=== PATIENT | male | born 1950 | race Caucasian/White ===

== ENCOUNTER 2021-05-18 14:08 | Inpatient (IN) ==
[2021-05-18] MEDS ORDERED: Aspirin 81 MG TAB.CHEW PO ONE (14:14)
[2021-05-18] MEDS ORDERED: Nitroglycerin 1 INCH/GM PACKET TP ONE (14:14)
[2021-05-18 14:51] LABS: Basophils % 0.6 %; Eosinophils # 0.2 K/mcL (0.0-0.6); Eosinophils % 4.7 %; Hematocrit 31.3 % (37.5-50.1); Hemoglobin 9.7 g/dL (12.9-16.9); Immature Granulocytes % 0.2 % (0-4); Lymphocytes # 0.8 K/mcL (0.6-4.6); Lymphocytes % 15.5 %; Mean Corpuscular Hemoglobin 27.8 pg (28.0-33.3); Mean Corpuscular Volume 89.7 fL (83.0-100.0); Mean Platelet Volume 10.2 fL (9.4-12.4); Monocytes # 0.8 K/mcL (0.0-1.3); Monocytes % 16.7 %; Platelet Count 216 K/mcL (140-400); Red Blood Count 3.49 M/mcL (4.19-5.50); Red Cell Distribution Width 17.2 % (11.5-14.5); Segmented Neutrophils % 62.3 %; White Blood Count 4.9 K/mcL (4.3-11.1)
[2021-05-18 14:58] LABS: INR 1.2; Prothrombin Time 13.4 Seconds (9.4-12.1)
[2021-05-18 15:07] LABS: BUN/Creatinine Ratio 22 (6-26); Blood Urea Nitrogen 19 mg/dL (8-23); Calcium 8.7 mg/dL (8.6-10.3); Carbon Dioxide 29 mEq/L (23-29); Chloride 103 mEq/L (98-107); Glucose 116 mg/dL (70-105); Osmolality,Calculated 291 (280-300); Potassium 3.9 mEq/L (3.5-5.1); Sodium 139 mEq/L (136-145); Troponin I < 0.03 ng/mL (< 0.04); eGFR For African Americans > 60 (> 60); eGFR For Non-African Americans > 60 (> 60)
[2021-05-18] MEDS ORDERED: Ondansetron 4 MG/2 ML VIAL IVP PRN (15:58)
[2021-05-18] MEDS ORDERED: D5% in Water 1,000 ML IVC PRN (16:59)
[2021-05-18] MEDS ORDERED: *HR* Dextrose 50 % in Water (Syg) 50 ML SYRINGE IVP PRN (16:59)
[2021-05-18] MEDS ORDERED: Dextrose Gel 15 GM/37.5 ML TUBE PO PRN ×2 (16:59)
[2021-05-18] MEDS ORDERED: QUEtiapine Fumarate 25 MG TABLET PO SCH (21:00)
[2021-05-18] MEDS: Insulin LISPRO 300 UNITS/3 ML VIAL SUBQ SCH (22:11)
[2021-05-18] MEDS: Acetaminophen 325 MG TABLET PO PRN (22:13)
[2021-05-19 02:10] LABS: Hematocrit 28.4 % (37.5-50.1); Hemoglobin 9.2 g/dL (12.9-16.9); Mean Corpuscular HGB Conc 32.4 g/dL (31.6-35.5); Mean Corpuscular Hemoglobin 29.3 pg (28.0-33.3); Mean Corpuscular Volume 90.4 fL (83.0-100.0); Mean Platelet Volume 9.7 fL (9.4-12.4); Platelet Count 204 K/mcL (140-400); Red Blood Count 3.14 M/mcL (4.19-5.50); Red Cell Distribution Width 17.1 % (11.5-14.5)
[2021-05-19 02:27] LABS: BUN/Creatinine Ratio 21 (6-26); Blood Urea Nitrogen 18 mg/dL (8-23); Calcium 8.5 mg/dL (8.6-10.3); Carbon Dioxide 26 mEq/L (23-29); Chloride 104 mEq/L (98-107); Chol/HDL Ratio 2.7 (0-4.9); Cholesterol 89 mg/dL (< 200); Glucose 114 mg/dL (70-105); HDL Cholesterol 33 mg/dL (40-59); LDL Cholesterol,Calculated 37 mg/dL (< 100); Osmolality,Calculated 287 (280-300); Potassium 3.5 mEq/L (3.5-5.1); Sodium 137 mEq/L (136-145); Triglycerides 93 mg/dL (< 150); eGFR For African Americans > 60 (> 60); eGFR For Non-African Americans > 60 (> 60)
[2021-05-19] MEDS ORDERED: Regadenoson 0.4 MG/5 ML SYRINGE IVP ONE (06:21)
[2021-05-19] MEDS ORDERED: Nitroglycerin 0.4 MG TAB.SUBL SL PRN (07:56)
[2021-05-19] MEDS: Insulin LISPRO 300 UNITS/3 ML VIAL SUBQ SCH ×4 (10:48→20:25)
[2021-05-19] MEDS: carvediloL 25 MG TABLET PO SCH ×2 (12:00→20:23)
[2021-05-19] MEDS: Divalproex Sodium 125 MG Sprinkle Capsule (DR) PO SCH ×3 (12:00→23:23)
[2021-05-19] MEDS: Aspirin 81 MG TAB.CHEW PO SCH (12:00)
[2021-05-19] MEDS: CARBOXYMETHYLCELLULOSE SODIUM OP SCH ×2 (12:00→20:38)
[2021-05-19] MEDS: lisinopriL 20 MG TABLET PO SCH (12:00)
[2021-05-19] MEDS: Isosorbide MONOnitrate (24 HR) 60 MG TAB.ER.24H PO SCH (12:00)
[2021-05-19] MEDS: Carbidopa/Levodopa 25/100 TABLET PO SCH ×4 (12:00→20:23)
[2021-05-19] MEDS: polyethylene glycoL 3350 17 GM POWD.PACK PO SCH (12:00)
[2021-05-19] MEDS: amLODIPine 5 MG TABLET PO SCH (12:00)
[2021-05-19] MEDS: hydrALAZINE 25 MG TABLET PO SCH ×3 (12:00→20:24)
[2021-05-19] MEDS: Aspirin Enteric Coated 81 MG Tablet PO SCH (12:00)
[2021-05-19] MEDS: Melatonin 3 MG TABLET PO SCH (20:23)
[2021-05-19] MEDS: QUEtiapine Fumarate 25 MG TABLET PO SCH (20:24)
[2021-05-19] MEDS: traZODone 50 MG TABLET PO SCH (23:23)
[2021-05-19] MEDS: Erythromycin OPTH Oint BOTH EYES SCH (23:24)
[2021-05-20] MEDS ORDERED: Perflutren Lipid Microsphere 1.3 ML in 0.9 % Sodium Chloride 8.7 ML IVP PRN (10:29)
[2021-05-20] MEDS: Insulin LISPRO 300 UNITS/3 ML VIAL SUBQ SCH ×4 (11:50→20:48)
[2021-05-20] MEDS: Acetaminophen 325 MG TABLET PO PRN (11:52)
[2021-05-20] MEDS: polyethylene glycoL 3350 17 GM POWD.PACK PO SCH (11:52)
[2021-05-20] MEDS: Divalproex Sodium 125 MG Sprinkle Capsule (DR) PO SCH ×3 (11:53→23:22)
[2021-05-20] MEDS: Carbidopa/Levodopa 25/100 TABLET PO SCH ×4 (11:54→22:08)
[2021-05-20] MEDS: hydrALAZINE 25 MG TABLET PO SCH ×3 (11:54→22:08)
[2021-05-20] MEDS: amLODIPine 5 MG TABLET PO SCH (11:54)
[2021-05-20] MEDS: Aspirin Enteric Coated 81 MG Tablet PO SCH (11:54)
[2021-05-20] MEDS: carvediloL 25 MG TABLET PO SCH ×2 (11:54→22:08)
[2021-05-20] MEDS: lisinopriL 20 MG TABLET PO SCH (11:54)
[2021-05-20] MEDS: CARBOXYMETHYLCELLULOSE SODIUM OP SCH ×2 (11:55→20:49)
[2021-05-20] MEDS: Isosorbide MONOnitrate (24 HR) 60 MG TAB.ER.24H PO SCH (11:55)
[2021-05-20] MEDS: Aspirin 81 MG TAB.CHEW PO SCH (14:44)
[2021-05-20] MEDS: traZODone 50 MG TABLET PO SCH (22:08)
[2021-05-20] MEDS: Melatonin 3 MG TABLET PO SCH (22:08)
[2021-05-20] MEDS: QUEtiapine Fumarate 25 MG TABLET PO SCH (22:09)
[2021-05-20] MEDS: Erythromycin OPTH Oint BOTH EYES SCH (22:09)
[2021-05-21 02:58] LABS: Hemoglobin 9.3 g/dL (12.9-16.9); Mean Corpuscular HGB Conc 32.1 g/dL (31.6-35.5); Mean Corpuscular Hemoglobin 28.7 pg (28.0-33.3); Mean Corpuscular Volume 89.5 fL (83.0-100.0); Mean Platelet Volume 9.3 fL (9.4-12.4); Platelet Count 216 K/mcL (140-400); Red Blood Count 3.24 M/mcL (4.19-5.50); White Blood Count 4.9 K/mcL (4.3-11.1)
[2021-05-21 03:17] LABS: BUN/Creatinine Ratio 21 (6-26); Blood Urea Nitrogen 23 mg/dL (8-23); Calcium 8.6 mg/dL (8.6-10.3); Carbon Dioxide 29 mEq/L (23-29); Chloride 104 mEq/L (98-107); Glucose 98 mg/dL (70-105); Osmolality,Calculated 292 (280-300); Potassium 3.6 mEq/L (3.5-5.1); Sodium 139 mEq/L (136-145); eGFR For African Americans > 60 (> 60); eGFR For Non-African Americans > 60 (> 60)
[2021-05-21] MEDS: Insulin LISPRO 300 UNITS/3 ML VIAL SUBQ SCH ×4 (08:24→21:00)
[2021-05-21] MEDS: Isosorbide MONOnitrate (24 HR) 60 MG TAB.ER.24H PO SCH (09:07)
[2021-05-21] MEDS: Carbidopa/Levodopa 25/100 TABLET PO SCH ×4 (09:07→20:58)
[2021-05-21] MEDS: Divalproex Sodium 125 MG Sprinkle Capsule (DR) PO SCH ×2 (09:07→17:46)
[2021-05-21] MEDS: carvediloL 25 MG TABLET PO SCH ×2 (09:08→20:59)
[2021-05-21] MEDS: amLODIPine 5 MG TABLET PO SCH (09:08)
[2021-05-21] MEDS: Aspirin Enteric Coated 81 MG Tablet PO SCH (09:08)
[2021-05-21] MEDS: hydrALAZINE 25 MG TABLET PO SCH ×3 (09:09→20:59)
[2021-05-21] MEDS: lisinopriL 20 MG TABLET PO SCH (09:09)
[2021-05-21] MEDS: polyethylene glycoL 3350 17 GM POWD.PACK PO SCH (09:09)
[2021-05-21] MEDS: CARBOXYMETHYLCELLULOSE SODIUM OP SCH (09:09)
[2021-05-21] MEDS ORDERED: *HR* Midazolam HCl 2 MG/2 ML VIAL ONE (14:58)
[2021-05-21] MEDS ORDERED: *HR* FentaNYL (PF) 100 MCG/2 ML VIAL ONE (14:58)
[2021-05-21] MEDS ORDERED: 0.9 % Sodium Chloride 1,000 ML ONE (14:58)
[2021-05-21] MEDS ORDERED: Heparin 1,000 UNITS/500 mL 500 ML ONE (14:58)
[2021-05-21] MEDS ORDERED: *HR* Heparin 10,000 UNIT/10 ML VIAL ONE (14:59)
[2021-05-21] MEDS ORDERED: ISOVUE-370 200 ML INFUS..BTL ONE ×2 (14:59→17:15)
[2021-05-21] MEDS ORDERED: Nitroglycerin 1,000 MCG/5 ML VIAL IV ONE (14:59)
[2021-05-21] MEDS ORDERED: Tirofiban 12.5 MG/250ML 12.5 MG/250 ML BAG ONE (16:13)
[2021-05-21] MEDS ORDERED: *HR* Ticagrelor 90 MG TABLET ONE (16:54)
[2021-05-21] MEDS ORDERED: Tirofiban 12.5 MG/250ML 12.5 MG/250 ML BAG IVC SCH (17:15)
[2021-05-21] MEDS: traZODone 50 MG TABLET PO SCH (20:58)
[2021-05-21] MEDS: Melatonin 3 MG TABLET PO SCH (20:58)
[2021-05-21] MEDS: QUEtiapine Fumarate 25 MG TABLET PO SCH (20:58)
[2021-05-21] MEDS: Erythromycin OPTH Oint BOTH EYES SCH (20:59)
[2021-05-21] MEDS: Artificial Tears SOLN 15 ML BOTTLE OP SCH (20:59)
[2021-05-22] MEDS: Divalproex Sodium 125 MG Sprinkle Capsule (DR) PO SCH ×4 (01:07→23:01)
[2021-05-22 05:27] LABS: Hematocrit 26.6 % (37.5-50.1); Hemoglobin 8.4 g/dL (12.9-16.9); Mean Corpuscular HGB Conc 31.6 g/dL (31.6-35.5); Mean Corpuscular Hemoglobin 28.5 pg (28.0-33.3); Mean Corpuscular Volume 90.2 fL (83.0-100.0); Mean Platelet Volume 9.6 fL (9.4-12.4); Platelet Count 224 K/mcL (140-400); Red Blood Count 2.95 M/mcL (4.19-5.50); Red Cell Distribution Width 17.1 % (11.5-14.5); White Blood Count 6.3 K/mcL (4.3-11.1)
[2021-05-22 05:34] LABS: BUN/Creatinine Ratio 33 (6-26); Blood Urea Nitrogen 44 mg/dL (8-23); Calcium 8.8 mg/dL (8.6-10.3); Carbon Dioxide 27 mEq/L (23-29); Chloride 104 mEq/L (98-107); Glucose 132 mg/dL (70-105); Osmolality,Calculated 301 (280-300); Potassium 4.3 mEq/L (3.5-5.1); Sodium 139 mEq/L (136-145); eGFR For African Americans > 60 (> 60); eGFR For Non-African Americans 53 (> 60)
[2021-05-22] MEDS ORDERED: 0.9 % Sodium Chloride 1,000 ML IVC SCH (08:30)
[2021-05-22] MEDS: Insulin LISPRO 300 UNITS/3 ML VIAL SUBQ SCH ×4 (09:33→23:02)
[2021-05-22] MEDS: polyethylene glycoL 3350 17 GM POWD.PACK PO SCH (09:42)
[2021-05-22] MEDS: Artificial Tears SOLN 15 ML BOTTLE OP SCH ×2 (09:42→23:04)
[2021-05-22] MEDS: Carbidopa/Levodopa 25/100 TABLET PO SCH ×4 (09:43→23:10)
[2021-05-22] MEDS: Aspirin Enteric Coated 81 MG Tablet PO SCH (09:44)
[2021-05-22] MEDS: carvediloL 25 MG TABLET PO SCH ×2 (09:44→23:00)
[2021-05-22] MEDS: *HR* Ticagrelor 90 MG TABLET PO SCH ×2 (09:44→23:03)
[2021-05-22] MEDS: lisinopriL 20 MG TABLET PO SCH (09:44)
[2021-05-22] MEDS: Isosorbide MONOnitrate (24 HR) 60 MG TAB.ER.24H PO SCH (09:45)
[2021-05-22] MEDS: hydrALAZINE 25 MG TABLET PO SCH ×3 (09:45→23:01)
[2021-05-22] MEDS: amLODIPine 5 MG TABLET PO SCH (09:45)
[2021-05-22] MEDS ORDERED: Isosorbide MONOnitrate (24 HR) 30 MG TAB.ER.24H PO ONE (13:46)
[2021-05-22 14:51] LABS: Sodium, Urine 15.6 mEq/L
[2021-05-22] MEDS ORDERED: SODIUM CHLORIDE/NAHCO3/KCL/PEG 4,000 ML SOLN.RECON PO ONE (17:00)
[2021-05-22] MEDS: QUEtiapine Fumarate 25 MG TABLET PO SCH (23:00)
[2021-05-22] MEDS: traZODone 50 MG TABLET PO SCH (23:01)
[2021-05-22] MEDS: Melatonin 3 MG TABLET PO SCH (23:01)
[2021-05-22] MEDS: Erythromycin OPTH Oint BOTH EYES SCH (23:05)
[2021-05-23 02:02] LABS: Hematocrit 25.5 % (37.5-50.1); Hemoglobin 7.8 g/dL (12.9-16.9); Mean Corpuscular HGB Conc 30.6 g/dL (31.6-35.5); Mean Corpuscular Hemoglobin 27.7 pg (28.0-33.3); Mean Corpuscular Volume 90.4 fL (83.0-100.0); Mean Platelet Volume 9.5 fL (9.4-12.4); Platelet Count 207 K/mcL (140-400); Red Blood Count 2.82 M/mcL (4.19-5.50); Red Cell Distribution Width 16.9 % (11.5-14.5); White Blood Count 5.5 K/mcL (4.3-11.1)
[2021-05-23 02:23] LABS: BUN/Creatinine Ratio 30 (6-26); Blood Urea Nitrogen 26 mg/dL (8-23); Calcium 8.4 mg/dL (8.6-10.3); Carbon Dioxide 27 mEq/L (23-29); Chloride 107 mEq/L (98-107); Glucose 91 mg/dL (70-105); Osmolality,Calculated 294 (280-300); Potassium 3.6 mEq/L (3.5-5.1); Sodium 140 mEq/L (136-145); eGFR For African Americans > 60 (> 60); eGFR For Non-African Americans > 60 (> 60)
[2021-05-23] MEDS: Insulin LISPRO 300 UNITS/3 ML VIAL SUBQ SCH ×4 (07:31→21:17)
[2021-05-23] MEDS: Artificial Tears SOLN 15 ML BOTTLE OP SCH ×2 (07:50→21:15)
[2021-05-23] MEDS: polyethylene glycoL 3350 17 GM POWD.PACK PO SCH (07:51)
[2021-05-23] MEDS: Isosorbide MONOnitrate (24 HR) 60 MG TAB.ER.24H PO SCH (07:51)
[2021-05-23] MEDS: Divalproex Sodium 125 MG Sprinkle Capsule (DR) PO SCH ×3 (07:51→23:17)
[2021-05-23] MEDS: hydrALAZINE 25 MG TABLET PO SCH ×3 (07:52→21:16)
[2021-05-23] MEDS: Aspirin Enteric Coated 81 MG Tablet PO SCH (07:52)
[2021-05-23] MEDS: carvediloL 25 MG TABLET PO SCH ×2 (07:52→21:17)
[2021-05-23] MEDS: amLODIPine 5 MG TABLET PO SCH (07:52)
[2021-05-23] MEDS: Carbidopa/Levodopa 25/100 TABLET PO SCH ×4 (07:52→21:21)
[2021-05-23] MEDS ORDERED: Lidocaine -MPF 2% 5 ML VIAL ONE (12:55)
[2021-05-23] MEDS ORDERED: EPHEDrine 50 MG/ML VIAL ONE (13:51)
[2021-05-23] MEDS ORDERED: Lidocaine HCL 4 ML Topical Solution (Laryng-O-Jet Kit Sterile Pak) TP ONE (14:19)
[2021-05-23] MEDS: *HR* Ticagrelor 90 MG TABLET PO SCH ×2 (15:15→21:21)
[2021-05-23] MEDS: QUEtiapine Fumarate 25 MG TABLET PO SCH (21:16)
[2021-05-23] MEDS: Melatonin 3 MG TABLET PO SCH (21:17)
[2021-05-23] MEDS: Erythromycin OPTH Oint BOTH EYES SCH (21:18)
[2021-05-23] MEDS: traZODone 50 MG TABLET PO SCH (23:17)
[2021-05-24] MEDS: Aspirin Enteric Coated 81 MG Tablet PO SCH (08:03)
[2021-05-24] MEDS: carvediloL 25 MG TABLET PO SCH ×2 (08:04→22:12)
[2021-05-24] MEDS: hydrALAZINE 25 MG TABLET PO SCH ×3 (08:04→22:12)
[2021-05-24] MEDS: Carbidopa/Levodopa 25/100 TABLET PO SCH ×4 (08:05→22:11)
[2021-05-24] MEDS: *HR* Ticagrelor 90 MG TABLET PO SCH ×2 (08:06→22:11)
[2021-05-24] MEDS: amLODIPine 5 MG TABLET PO SCH (08:06)
[2021-05-24] MEDS: Isosorbide MONOnitrate (24 HR) 60 MG TAB.ER.24H PO SCH (08:06)
[2021-05-24] MEDS: Divalproex Sodium 125 MG Sprinkle Capsule (DR) PO SCH ×3 (08:07→23:48)
[2021-05-24] MEDS: Insulin LISPRO 300 UNITS/3 ML VIAL SUBQ SCH ×4 (08:07→22:06)
[2021-05-24] MEDS: polyethylene glycoL 3350 17 GM POWD.PACK PO SCH (08:07)
[2021-05-24] MEDS ORDERED: Isovue-370 500 ML BOTTLE IVP ONE (08:16)
[2021-05-24 10:22] LABS: Basophils % 0.3 %; Eosinophils # 0.2 K/mcL (0.0-0.6); Eosinophils % 2.5 %; Hematocrit 26.5 % (37.5-50.1); Hemoglobin 8.4 g/dL (12.9-16.9); Immature Granulocytes % 0.3 % (0-4); Lymphocytes # 0.6 K/mcL (0.6-4.6); Lymphocytes % 7.9 %; Mean Corpuscular HGB Conc 31.7 g/dL (31.6-35.5); Mean Corpuscular Hemoglobin 28.8 pg (28.0-33.3); Mean Corpuscular Volume 90.8 fL (83.0-100.0); Mean Platelet Volume 9.8 fL (9.4-12.4); Monocytes # 0.9 K/mcL (0.0-1.3); Monocytes % 11.3 %; Platelet Count 226 K/mcL (140-400); Red Blood Count 2.92 M/mcL (4.19-5.50); Red Cell Distribution Width 16.9 % (11.5-14.5); Segmented Neutrophils % 77.7 %; White Blood Count 7.7 K/mcL (4.3-11.1)
[2021-05-24 10:37] LABS: BUN/Creatinine Ratio 18 (6-26); Blood Urea Nitrogen 16 mg/dL (8-23); Calcium 9.1 mg/dL (8.6-10.3); Carbon Dioxide 27 mEq/L (23-29); Chloride 106 mEq/L (98-107); Glucose 99 mg/dL (70-105); Osmolality,Calculated 291 (280-300); Potassium 3.9 mEq/L (3.5-5.1); Sodium 140 mEq/L (136-145); eGFR For African Americans > 60 (> 60); eGFR For Non-African Americans > 60 (> 60)
[2021-05-24] MEDS: Artificial Tears SOLN 15 ML BOTTLE OP SCH ×2 (10:58→22:15)
[2021-05-24] MEDS: Melatonin 3 MG TABLET PO SCH (22:10)
[2021-05-24] MEDS: QUEtiapine Fumarate 25 MG TABLET PO SCH (22:11)
[2021-05-24] MEDS: traZODone 50 MG TABLET PO SCH (22:11)
[2021-05-24] MEDS: Erythromycin OPTH Oint BOTH EYES SCH (22:15)
[2021-05-25 05:04] LABS: Basophils % 0.2 %; Eosinophils # 0.2 K/mcL (0.0-0.6); Eosinophils % 3.9 %; Hematocrit 23.7 % (37.5-50.1); Hemoglobin 7.6 g/dL (12.9-16.9); Immature Granulocytes % 0.2 % (0-4); Lymphocytes # 0.9 K/mcL (0.6-4.6); Lymphocytes % 18.4 %; Mean Corpuscular HGB Conc 32.1 g/dL (31.6-35.5); Mean Corpuscular Hemoglobin 29.2 pg (28.0-33.3); Mean Corpuscular Volume 91.2 fL (83.0-100.0); Mean Platelet Volume 9.8 fL (9.4-12.4); Monocytes # 0.7 K/mcL (0.0-1.3); Monocytes % 15.6 %; Neutrophils # 2.9 K/mcL (1.6-8.9); Platelet Count 204 K/mcL (140-400); Red Cell Distribution Width 17.1 % (11.5-14.5); Segmented Neutrophils % 61.7 %; White Blood Count 4.7 K/mcL (4.3-11.1)
[2021-05-25 05:19] LABS: BUN/Creatinine Ratio 21 (6-26); Blood Urea Nitrogen 20 mg/dL (8-23); Calcium 8.7 mg/dL (8.6-10.3); Carbon Dioxide 25 mEq/L (23-29); Chloride 108 mEq/L (98-107); Glucose 96 mg/dL (70-105); Osmolality,Calculated 292 (280-300); Potassium 3.8 mEq/L (3.5-5.1); Sodium 140 mEq/L (136-145); eGFR For African Americans > 60 (> 60); eGFR For Non-African Americans > 60 (> 60)
[2021-05-25] MEDS: Insulin LISPRO 300 UNITS/3 ML VIAL SUBQ SCH ×4 (08:43→23:21)
[2021-05-25] MEDS: hydrALAZINE 25 MG TABLET PO SCH ×3 (08:55→23:21)
[2021-05-25] MEDS: carvediloL 25 MG TABLET PO SCH ×2 (08:55→23:20)
[2021-05-25] MEDS: Carbidopa/Levodopa 25/100 TABLET PO SCH ×4 (08:55→23:21)
[2021-05-25] MEDS: Isosorbide MONOnitrate (24 HR) 60 MG TAB.ER.24H PO SCH (08:56)
[2021-05-25] MEDS: *HR* Ticagrelor 90 MG TABLET PO SCH ×2 (08:56→23:20)
[2021-05-25] MEDS: Artificial Tears SOLN 15 ML BOTTLE OP SCH ×2 (08:56→23:20)
[2021-05-25] MEDS: amLODIPine 5 MG TABLET PO SCH (08:56)
[2021-05-25] MEDS: Aspirin Enteric Coated 81 MG Tablet PO SCH (08:56)
[2021-05-25] MEDS: polyethylene glycoL 3350 17 GM POWD.PACK PO SCH (08:57)
[2021-05-25] MEDS: Divalproex Sodium 125 MG Sprinkle Capsule (DR) PO SCH ×2 (08:58→15:47)
[2021-05-25 12:22] LABS: Adenovirus Not Detected (Not Detect); Bordetella Pertussis Not Detected (Not Detect); Chlamydophila pneumoniae Not Detected (Not Detect); Coronavirus 229E Not Detected (Not Detect); Coronavirus HKU1 Not Detected (Not Detect); Coronavirus NL63 Not Detected (Not Detect); Coronavirus OC43 Not Detected (Not Detect); Human Metapneumovirus Not Detected (Not Detect); Human Rhinovirus/Enterovirus Not Detected (Not Detect); Influenza A Subtype 2009 H1 Not Detected (Not Detect); Influenza B Not Detected (Not Detect); Mycoplasma pneumoniae Not Detected (Not Detect); Parainfluenza Virus 1 Not Detected (Not Detect); Parainfluenza Virus 2 Not Detected (Not Detect); Parainfluenza Virus 3 Not Detected (Not Detect); Parainfluenza Virus 4 Not Detected (Not Detect); Respiratory Syncytial Virus Not Detected (Not Detect); SARS-CoV-2 Not Detected (Not Detect)
[2021-05-25] MEDS ORDERED: 0.9 % Sodium Chloride 500 ML ONE (12:38)
[2021-05-25] MEDS ORDERED: Haloperidol Lactate 5 MG/ML VIAL IM ONE (16:41)
[2021-05-25] MEDS ORDERED: *HR* LORazepam 2 MG/ML VIAL IM STA (16:41)
[2021-05-25] MEDS: Melatonin 3 MG TABLET PO SCH (23:21)
[2021-05-25] MEDS: Erythromycin OPTH Oint BOTH EYES SCH (23:21)
[2021-05-25] MEDS: QUEtiapine Fumarate 25 MG TABLET PO SCH (23:21)
[2021-05-25] MEDS: traZODone 50 MG TABLET PO SCH (23:21)
[2021-05-26] MEDS: Divalproex Sodium 125 MG Sprinkle Capsule (DR) PO SCH ×3 (00:48→16:04)
[2021-05-26 02:48] LABS: Hematocrit 23.8 % (37.5-50.1); Hemoglobin 7.4 g/dL (12.9-16.9); Mean Corpuscular HGB Conc 31.1 g/dL (31.6-35.5); Mean Corpuscular Hemoglobin 28.2 pg (28.0-33.3); Mean Corpuscular Volume 90.8 fL (83.0-100.0); Mean Platelet Volume 9.6 fL (9.4-12.4); Platelet Count 214 K/mcL (140-400); Red Blood Count 2.62 M/mcL (4.19-5.50); Red Cell Distribution Width 16.9 % (11.5-14.5); White Blood Count 4.8 K/mcL (4.3-11.1)
[2021-05-26 03:07] LABS: BUN/Creatinine Ratio 21 (6-26); Blood Urea Nitrogen 21 mg/dL (8-23); Calcium 8.6 mg/dL (8.6-10.3); Carbon Dioxide 26 mEq/L (23-29); Chloride 107 mEq/L (98-107); Glucose 85 mg/dL (70-105); Osmolality,Calculated 294 (280-300); Potassium 3.7 mEq/L (3.5-5.1); Sodium 141 mEq/L (136-145); eGFR For African Americans > 60 (> 60); eGFR For Non-African Americans > 60 (> 60)
[2021-05-26] MEDS: Insulin LISPRO 300 UNITS/3 ML VIAL SUBQ SCH ×4 (08:29→21:35)
[2021-05-26] MEDS: hydrALAZINE 25 MG TABLET PO SCH ×3 (08:47→21:32)
[2021-05-26] MEDS: polyethylene glycoL 3350 17 GM POWD.PACK PO SCH (08:47)
[2021-05-26] MEDS: Aspirin Enteric Coated 81 MG Tablet PO SCH (08:47)
[2021-05-26] MEDS: Carbidopa/Levodopa 25/100 TABLET PO SCH ×4 (08:48→21:32)
[2021-05-26] MEDS: amLODIPine 5 MG TABLET PO SCH (08:48)
[2021-05-26] MEDS: Isosorbide MONOnitrate (24 HR) 60 MG TAB.ER.24H PO SCH (08:48)
[2021-05-26] MEDS: *HR* Ticagrelor 90 MG TABLET PO SCH ×2 (08:48→21:35)
[2021-05-26] MEDS: carvediloL 25 MG TABLET PO SCH ×2 (08:49→21:32)
[2021-05-26] MEDS: Artificial Tears SOLN 15 ML BOTTLE OP SCH ×2 (08:49→21:33)
[2021-05-26 12:19] LABS: Hematocrit 27.7 % (37.5-50.1); Hemoglobin 8.6 g/dL (12.9-16.9)
[2021-05-26] MEDS: Acetaminophen 325 MG TABLET PO PRN (13:40)
[2021-05-26] MEDS ORDERED: Haloperidol Lactate 5 MG/ML VIAL IVP ONE (20:09)
[2021-05-26] MEDS: traZODone 50 MG TABLET PO SCH (21:31)
[2021-05-26] MEDS: QUEtiapine Fumarate 25 MG TABLET PO SCH (21:32)
[2021-05-26] MEDS: Melatonin 3 MG TABLET PO SCH (21:32)
[2021-05-26] MEDS: Erythromycin OPTH Oint BOTH EYES SCH (21:33)
[2021-05-27] MEDS: Divalproex Sodium 125 MG Sprinkle Capsule (DR) PO SCH ×3 (01:37→18:49)
[2021-05-27] MEDS: Insulin LISPRO 300 UNITS/3 ML VIAL SUBQ SCH ×4 (07:49→20:11)
[2021-05-27] MEDS: Aspirin Enteric Coated 81 MG Tablet PO SCH (08:11)
[2021-05-27] MEDS: amLODIPine 5 MG TABLET PO SCH (08:11)
[2021-05-27] MEDS: hydrALAZINE 25 MG TABLET PO SCH ×3 (08:11→19:32)
[2021-05-27] MEDS: carvediloL 25 MG TABLET PO SCH ×2 (08:11→19:32)
[2021-05-27] MEDS: *HR* Ticagrelor 90 MG TABLET PO SCH ×2 (08:11→19:33)
[2021-05-27] MEDS: Carbidopa/Levodopa 25/100 TABLET PO SCH ×4 (08:12→19:33)
[2021-05-27] MEDS: Isosorbide MONOnitrate (24 HR) 60 MG TAB.ER.24H PO SCH (08:12)
[2021-05-27] MEDS: polyethylene glycoL 3350 17 GM POWD.PACK PO SCH (08:14)
[2021-05-27] MEDS: Artificial Tears SOLN 15 ML BOTTLE OP SCH ×2 (08:23→19:36)
[2021-05-27] MEDS: traZODone 50 MG TABLET PO SCH (19:32)
[2021-05-27] MEDS: QUEtiapine Fumarate 25 MG TABLET PO SCH (19:32)
[2021-05-27] MEDS: Melatonin 3 MG TABLET PO SCH (19:33)
[2021-05-27] MEDS: Erythromycin OPTH Oint BOTH EYES SCH (19:38)
[2021-05-27 23:14] VITALS: PULSE 84; TEMP 97.9; O2SAT 95
[2021-05-28 00:56] VITALS: BP 155/80
[2021-05-28] MEDS: Divalproex Sodium 125 MG Sprinkle Capsule (DR) PO SCH (01:08)
== END 2021-05-28 01:25 | disposition left against medical advice (07) | DRG 247 ==
LOC: EMEROOARM 14:08 → 3BNU 14:08 → SUATTDRO 16:21 → 3BNU 17:52
PROVIDERS: ADMIT Pharmacist; ATTEND Internal Medicine
PROC: ENDOCCB (2021-05-23 13:45)

== ENCOUNTER 2021-05-29 18:58 | Observation (INO) ==
[2021-05-29 20:10] LABS: Basophils % 0.5 %; Eosinophils # 0.2 K/mcL (0.0-0.6); Eosinophils % 3.8 %; Hematocrit 24.3 % (37.5-50.1); Hemoglobin 7.6 g/dL (12.9-16.9); Immature Granulocytes % 0.2 % (0-4); Lymphocytes # 0.8 K/mcL (0.6-4.6); Lymphocytes % 13.5 %; Mean Corpuscular HGB Conc 31.3 g/dL (31.6-35.5); Mean Corpuscular Hemoglobin 28.5 pg (28.0-33.3); Mean Platelet Volume 9.2 fL (9.4-12.4); Monocytes # 1.1 K/mcL (0.0-1.3); Monocytes % 17.6 %; Neutrophils # 3.9 K/mcL (1.6-8.9); Platelet Count 290 K/mcL (140-400); Red Blood Count 2.67 M/mcL (4.19-5.50); Red Cell Distribution Width 16.7 % (11.5-14.5); Segmented Neutrophils % 64.4 %
[2021-05-29 20:16] LABS: BUN/Creatinine Ratio 24 (6-26); Blood Urea Nitrogen 24 mg/dL (8-23); Calcium 8.9 mg/dL (8.6-10.3); Carbon Dioxide 27 mEq/L (23-29); Chloride 105 mEq/L (98-107); Glucose 103 mg/dL (70-105); Osmolality,Calculated 294 (280-300); Potassium 4.3 mEq/L (3.5-5.1); Sodium 140 mEq/L (136-145); eGFR For African Americans > 60 (> 60); eGFR For Non-African Americans > 60 (> 60)
[2021-05-29 20:18] LABS: Troponin I < 0.03 ng/mL (< 0.04)
[2021-05-29] MEDS ORDERED: Aspirin 325 MG TABLET PO ONE (20:38)
[2021-05-29] MEDS ORDERED: Naloxone 0.4 MG/ML INJ IVP PRN (22:35)
[2021-05-29] MEDS ORDERED: NON-FORMULARY MEDICATION 1 EACH EACH (Albuterol Sulfate 8.5 GM Hfa.Aer.Ad) IH PRN (22:51)
[2021-05-29 22:54] LABS: Influenza A PCR Negative (Negative); Influenza B PCR Negative (Negative); Resp. Syncytial Virus PCR Negative (Negative)
[2021-05-29 22:55] LABS: SARS-CoV-2 by PCR (In House) Negative (Negative)
[2021-05-29] MEDS ORDERED: Acetaminophen 325 MG TABLET PO PRN (23:51)
[2021-05-29] MEDS: Melatonin 3 MG TABLET PO SCH (23:57)
[2021-05-29] MEDS: Divalproex Sodium 125 MG Sprinkle Capsule (DR) PO SCH (23:57)
[2021-05-30] MEDS ORDERED: *HR* Ticagrelor 90 MG TABLET PO SCH (00:15)
[2021-05-30] MEDS ORDERED: 0.9 % Sodium Chloride 500 ML ONE (00:15)
[2021-05-30] MEDS: Haloperidol Lactate 5 MG/ML VIAL IVP PRN (02:16)
[2021-05-30] MEDS: traZODone 50 MG TABLET PO SCH ×2 (02:53→23:26)
[2021-05-30] MEDS: Isosorbide MONOnitrate (24 HR) 30 MG TAB.ER.24H PO SCH (02:53)
[2021-05-30 05:33] LABS: Hematocrit 25.2 % (37.5-50.1); Hemoglobin 7.7 g/dL (12.9-16.9); Mean Corpuscular HGB Conc 30.6 g/dL (31.6-35.5); Mean Corpuscular Hemoglobin 27.8 pg (28.0-33.3); Mean Platelet Volume 9.1 fL (9.4-12.4); Platelet Count 253 K/mcL (140-400); Red Blood Count 2.77 M/mcL (4.19-5.50); Red Cell Distribution Width 16.3 % (11.5-14.5); White Blood Count 5.6 K/mcL (4.3-11.1)
[2021-05-30 05:42] LABS: INR 1.2; Prothrombin Time 13.7 Seconds (9.4-12.1)
[2021-05-30 06:16] LABS: BUN/Creatinine Ratio 24 (6-26); Blood Urea Nitrogen 21 mg/dL (8-23); Calcium 8.5 mg/dL (8.6-10.3); Carbon Dioxide 25 mEq/L (23-29); Chloride 108 mEq/L (98-107); Glucose 105 mg/dL (70-105); Magnesium 1.6 mg/dL (1.6-2.6); Osmolality,Calculated 295 (280-300); Phosphorous 3.3 mg/dL (2.7-4.5); Potassium 3.4 mEq/L (3.5-5.1); Sodium 141 mEq/L (136-145); eGFR For African Americans > 60 (> 60); eGFR For Non-African Americans > 60 (> 60)
[2021-05-30] MEDS ORDERED: Nitroglycerin 0.1 MG PATCH.TD24 TD SCH (07:30)
[2021-05-30] MEDS: Divalproex Sodium 125 MG Sprinkle Capsule (DR) PO SCH ×3 (07:49→23:28)
[2021-05-30] MEDS: lisinopriL 20 MG TABLET PO SCH (07:50)
[2021-05-30] MEDS: carvediloL 6.25 MG TABLET PO SCH ×2 (07:50→17:02)
[2021-05-30] MEDS: polyethylene glycoL 3350 17 GM POWD.PACK PO SCH (07:50)
[2021-05-30] MEDS: hydrALAZINE 25 MG TABLET PO SCH ×3 (07:51→21:58)
[2021-05-30] MEDS: Multivit/Ca/Min/Fe/FA 1 TAB TABLET PO SCH (07:52)
[2021-05-30] MEDS: Carbidopa/Levodopa 25/100 TABLET PO SCH ×4 (07:52→21:58)
[2021-05-30] MEDS: amLODIPine 5 MG TABLET PO SCH (07:52)
[2021-05-30] MEDS: *HR* Heparin 5,000 UNIT/ML VIAL SQ SCH ×2 (07:52→17:02)
[2021-05-30] MEDS: Aspirin Enteric Coated 81 MG Tablet PO SCH (07:52)
[2021-05-30] MEDS ORDERED: Isosorbide MONOnitrate (24 HR) 60 MG TAB.ER.24H PO SCH (09:00)
[2021-05-30] MEDS ORDERED: Isovue-370 500 ML BOTTLE IVP ONE (10:48)
[2021-05-30] MEDS ORDERED: Isovue-370 500 ML BOTTLE RC ONE (13:38)
[2021-05-30] MEDS ORDERED: SODIUM CHLORIDE/NAHCO3/KCL/PEG 4,000 ML SOLN.RECON PO ONE (15:10)
[2021-05-30 17:40] LABS: Hematocrit 29.6 % (37.5-50.1); Hemoglobin 9.7 g/dL (12.9-16.9)
[2021-05-30] MEDS ORDERED: NON-FORMULARY MEDICATION 1 EACH EACH (Quetiapine Fumarate [Seroquel] 50 MG Tablet) PO SCH (21:00)
[2021-05-30] MEDS: QUEtiapine Fumarate 25 MG TABLET PO SCH (21:58)
[2021-05-30] MEDS: Melatonin 3 MG TABLET PO SCH (23:26)
[2021-05-31 02:36] LABS: Basophils % 0.5 %; Eosinophils # 0.3 K/mcL (0.0-0.6); Eosinophils % 5.7 %; Hematocrit 25.8 % (37.5-50.1); Hemoglobin 8.2 g/dL (12.9-16.9); Immature Granulocytes % 0.2 % (0-4); Lymphocytes % 16.5 %; Mean Corpuscular HGB Conc 31.8 g/dL (31.6-35.5); Mean Corpuscular Hemoglobin 28.9 pg (28.0-33.3); Mean Corpuscular Volume 90.8 fL (83.0-100.0); Monocytes # 1.1 K/mcL (0.0-1.3); Monocytes % 19.1 %; Platelet Count 258 K/mcL (140-400); Red Blood Count 2.84 M/mcL (4.19-5.50); Red Cell Distribution Width 15.9 % (11.5-14.5); White Blood Count 5.8 K/mcL (4.3-11.1)
[2021-05-31 02:46] LABS: Neutrophils # 3.4 K/mcL (1.6-8.9)
[2021-05-31 03:12] LABS: Platelet Estimate Normal (Normal)
[2021-05-31] MEDS: *HR* Heparin 5,000 UNIT/ML VIAL SQ SCH ×2 (05:59→17:24)
[2021-05-31] MEDS: Aspirin Enteric Coated 81 MG Tablet PO SCH (07:34)
[2021-05-31] MEDS: Carbidopa/Levodopa 25/100 TABLET PO SCH ×4 (07:34→20:44)
[2021-05-31] MEDS: Divalproex Sodium 125 MG Sprinkle Capsule (DR) PO SCH ×3 (07:34→22:44)
[2021-05-31] MEDS: carvediloL 6.25 MG TABLET PO SCH ×2 (07:34→17:23)
[2021-05-31] MEDS: amLODIPine 5 MG TABLET PO SCH (07:35)
[2021-05-31] MEDS: Isosorbide MONOnitrate (24 HR) 30 MG TAB.ER.24H PO SCH (07:35)
[2021-05-31] MEDS: lisinopriL 20 MG TABLET PO SCH (07:35)
[2021-05-31] MEDS: hydrALAZINE 25 MG TABLET PO SCH ×3 (07:35→20:44)
[2021-05-31] MEDS: polyethylene glycoL 3350 17 GM POWD.PACK PO SCH (07:36)
[2021-05-31] MEDS: Multivit/Ca/Min/Fe/FA 1 TAB TABLET PO SCH (07:36)
[2021-05-31] MEDS ORDERED: Barium Sulfate (Liquid Polibar Plus) 1 BOTTLE ORAL.SUSP RC ONE (10:05)
[2021-05-31] MEDS: Haloperidol Lactate 5 MG/ML VIAL IVP PRN (11:34)
[2021-05-31 16:58] LABS: Hematocrit 26.8 % (37.5-50.1); Hemoglobin 8.4 g/dL (12.9-16.9)
[2021-05-31] MEDS: Melatonin 3 MG TABLET PO SCH (20:44)
[2021-05-31] MEDS: QUEtiapine Fumarate 25 MG TABLET PO SCH (20:44)
[2021-05-31] MEDS: traZODone 50 MG TABLET PO SCH (20:44)
[2021-05-31 23:17] VITALS: TEMP 97.8
[2021-06-01] MEDS: Haloperidol Lactate 5 MG/ML VIAL IVP PRN (01:46)
[2021-06-01] MEDS ORDERED: *HR* LORazepam 2 MG/ML VIAL IVP ONE (02:00)
[2021-06-01] MEDS: *HR* Heparin 5,000 UNIT/ML VIAL SQ SCH (06:38)
[2021-06-01 08:37] LABS: Basophils % 0.6 %; Eosinophils # 0.3 K/mcL (0.0-0.6); Eosinophils % 7.6 %; Hematocrit 25.8 % (37.5-50.1); Hemoglobin 8.2 g/dL (12.9-16.9); Lymphocytes # 0.6 K/mcL (0.6-4.6); Lymphocytes % 16.6 %; Mean Corpuscular HGB Conc 31.8 g/dL (31.6-35.5); Mean Corpuscular Hemoglobin 28.8 pg (28.0-33.3); Mean Corpuscular Volume 90.5 fL (83.0-100.0); Mean Platelet Volume 8.8 fL (9.4-12.4); Monocytes # 0.6 K/mcL (0.0-1.3); Monocytes % 17.2 %; Neutrophils # 2.1 K/mcL (1.6-8.9); Platelet Count 278 K/mcL (140-400); Red Blood Count 2.85 M/mcL (4.19-5.50); Red Cell Distribution Width 16.1 % (11.5-14.5); White Blood Count 3.6 K/mcL (4.3-11.1)
[2021-06-01 08:57] LABS: Alanine Aminotransferase 8 Units/L (7-52); Albumin 3.5 g/dL (3.5-5.7); Albumin/Globulin Ratio 1.5 (1.1-2.2); Alkaline Phosphatase 45 Units/L (34-104); Aspartate Amino Transferase 22 Units/L (13-39); BUN/Creatinine Ratio 9 (6-26); Bilirubin,Total 0.3 mg/dL (0.3-1.0); Blood Urea Nitrogen 7 mg/dL (8-23); Calcium 8.8 mg/dL (8.6-10.3); Carbon Dioxide 26 mEq/L (23-29); Chloride 107 mEq/L (98-107); Globulin 2.4 g/dL (2.4-3.5); Glucose 92 mg/dL (70-105); Osmolality,Calculated 284 (280-300); Potassium 3.5 mEq/L (3.5-5.1); Sodium 138 mEq/L (136-145); Total Protein 5.9 g/dL (6.4-8.9); eGFR For African Americans > 60 (> 60); eGFR For Non-African Americans > 60 (> 60)
[2021-06-01] MEDS: Divalproex Sodium 125 MG Sprinkle Capsule (DR) PO SCH (10:42)
[2021-06-01] MEDS: polyethylene glycoL 3350 17 GM POWD.PACK PO SCH (10:43)
[2021-06-01] MEDS: Carbidopa/Levodopa 25/100 TABLET PO SCH ×2 (10:44→12:03)
[2021-06-01] MEDS: carvediloL 6.25 MG TABLET PO SCH (12:02)
[2021-06-01] MEDS: Multivit/Ca/Min/Fe/FA 1 TAB TABLET PO SCH (12:02)
[2021-06-01] MEDS: hydrALAZINE 25 MG TABLET PO SCH (12:02)
[2021-06-01] MEDS: amLODIPine 5 MG TABLET PO SCH (12:02)
[2021-06-01] MEDS: Aspirin Enteric Coated 81 MG Tablet PO SCH (12:03)
[2021-06-01] MEDS: lisinopriL 20 MG TABLET PO SCH (12:03)
[2021-06-01] MEDS: Isosorbide MONOnitrate (24 HR) 30 MG TAB.ER.24H PO SCH (12:03)
[2021-06-01 12:09] VITALS: BP 155/82; PULSE 86; O2SAT 97
== END 2021-06-01 15:30 | disposition home or self-care (01) ==
LOC: EMEROOARM 18:58 → 3BNU 18:58
PROVIDERS: ADMIT Internal Medicine; ATTEND Internal Medicine

== ENCOUNTER 2021-07-25 23:53 | Observation (INO) ==
[2021-07-26] MEDS ORDERED: Nitroglycerin 0.4 MG TAB.SUBL SL PRN (00:40)
[2021-07-26] MEDS ORDERED: Aspirin 81 MG TAB.CHEW PO ONE (00:40)
[2021-07-26 01:08] LABS: Basophils % 0.6 %; Eosinophils # 0.2 K/mcL (0.0-0.6); Eosinophils % 4.5 %; Hematocrit 27.1 % (37.5-50.1); Hemoglobin 8.3 g/dL (12.9-16.9); Immature Granulocytes % 0.2 % (0-4); Lymphocytes # 0.8 K/mcL (0.6-4.6); Lymphocytes % 16.4 %; Mean Corpuscular HGB Conc 30.6 g/dL (31.6-35.5); Mean Corpuscular Hemoglobin 29.2 pg (28.0-33.3); Mean Corpuscular Volume 95.4 fL (83.0-100.0); Mean Platelet Volume 9.7 fL (9.4-12.4); Monocytes % 20.1 %; Neutrophils # 2.9 K/mcL (1.6-8.9); Platelet Count 186 K/mcL (140-400); Red Blood Count 2.84 M/mcL (4.19-5.50); Red Cell Distribution Width 15.6 % (11.5-14.5); Segmented Neutrophils % 58.2 %; White Blood Count 4.9 K/mcL (4.3-11.1)
[2021-07-26 01:20] LABS: INR 1.3; Prothrombin Time 14.2 Seconds (9.4-12.1)
[2021-07-26 01:23] LABS: Activated Partial Thrombo Time 34.1 Seconds (26.0-36.0)
[2021-07-26 01:24] LABS: BUN/Creatinine Ratio 28 (6-26); Blood Urea Nitrogen 27 mg/dL (8-23); Calcium 8.6 mg/dL (8.6-10.3); Carbon Dioxide 28 mEq/L (23-29); Chloride 105 mEq/L (98-107); Glucose 105 mg/dL (70-105); Osmolality,Calculated 293 (280-300); Potassium 3.7 mEq/L (3.5-5.1); Sodium 139 mEq/L (136-145); eGFR For African Americans > 60 (> 60); eGFR For Non-African Americans > 60 (> 60)
[2021-07-26 01:25] LABS: Troponin I < 0.03 ng/mL (< 0.04)
[2021-07-26 01:41] LABS: Influenza A PCR Negative (Negative); Influenza B PCR Negative (Negative); Resp. Syncytial Virus PCR Negative (Negative)
[2021-07-26 01:44] LABS: SARS-CoV-2 by PCR (In House) Negative (Negative)
[2021-07-26] MEDS ORDERED: Perflutren Lipid Microsphere 1.3 ML in 0.9 % Sodium Chloride 8.7 ML IVP PRN (03:42)
[2021-07-26] MEDS ORDERED: D5% in Water 1,000 ML IVC PRN (03:46)
[2021-07-26] MEDS ORDERED: Dextrose Gel 15 GM/37.5 ML TUBE PO PRN ×2 (03:46)
[2021-07-26] MEDS ORDERED: *HR* Dextrose 50 % in Water (Syg) 50 ML SYRINGE IVP PRN (03:46)
[2021-07-26] MEDS ORDERED: Naloxone 0.4 MG/ML INJ IVP PRN (03:47)
[2021-07-26] MEDS ORDERED: Acetaminophen 325 MG TABLET PO PRN (03:47)
[2021-07-26] MEDS ORDERED: Ondansetron 4 MG/2 ML VIAL IVP PRN (03:47)
[2021-07-26] MEDS: Insulin LISPRO 300 UNITS/3 ML VIAL SUBQ SCH ×3 (05:55→16:38)
[2021-07-26] MEDS: *HR* Heparin 5,000 UNIT/ML VIAL SQ SCH ×3 (06:08→21:48)
[2021-07-26] MEDS: Famotidine 20 MG/2 ML VIAL IVP SCH ×2 (06:09→16:53)
[2021-07-26] MEDS: Aspirin Enteric Coated 81 MG Tablet PO SCH (07:49)
[2021-07-26 10:36] LABS: Chol/HDL Ratio 2.6 (0-4.9); Cholesterol 102 mg/dL (< 200); HDL Cholesterol 39 mg/dL (40-59); LDL Cholesterol,Calculated 47 mg/dL (< 100); Magnesium 1.8 mg/dL (1.6-2.6); Triglycerides 82 mg/dL (< 150); Troponin I < 0.03 ng/mL (< 0.04)
[2021-07-26 11:05] LABS: Estimated Average Glucose 91 mg/dl; Hemoglobin A1C 4.8 %
[2021-07-27 01:55] LABS: Hematocrit 32.3 % (37.5-50.1); Mean Corpuscular HGB Conc 31.6 g/dL (31.6-35.5); Mean Corpuscular Hemoglobin 29.9 pg (28.0-33.3); Mean Corpuscular Volume 94.7 fL (83.0-100.0); Mean Platelet Volume 9.4 fL (9.4-12.4); Platelet Count 214 K/mcL (140-400); Red Blood Count 3.41 M/mcL (4.19-5.50); Red Cell Distribution Width 15.3 % (11.5-14.5); White Blood Count 5.3 K/mcL (4.3-11.1)
[2021-07-27 01:57] LABS: Hemoglobin 10.2 g/dL (12.9-16.9)
[2021-07-27 02:16] LABS: BUN/Creatinine Ratio 27 (6-26); Blood Urea Nitrogen 24 mg/dL (8-23); Calcium 8.8 mg/dL (8.6-10.3); Carbon Dioxide 27 mEq/L (23-29); Chloride 105 mEq/L (98-107); Glucose 82 mg/dL (70-105); Osmolality,Calculated 293 (280-300); Potassium 3.4 mEq/L (3.5-5.1); Sodium 140 mEq/L (136-145); eGFR For African Americans > 60 (> 60); eGFR For Non-African Americans > 60 (> 60)
[2021-07-27 02:17] LABS: Iron 32 mcg/dL (65-175)
[2021-07-27 02:32] LABS: Ferritin 16 ng/mL (20-250)
[2021-07-27 02:45] LABS: Folate > 22.3 ng/mL (3.0-16.0); Vitamin B12 827 pg/mL (250-1100)
[2021-07-27 02:49] LABS: % Iron Saturation 9 % (20-55); Transferrin 259 mg/dL (203-362)
[2021-07-27] MEDS: Insulin LISPRO 300 UNITS/3 ML VIAL SUBQ SCH ×2 (03:33→06:03)
[2021-07-27] MEDS: *HR* Heparin 5,000 UNIT/ML VIAL SQ SCH (05:15)
[2021-07-27] MEDS: Famotidine 20 MG/2 ML VIAL IVP SCH (05:17)
[2021-07-27 07:21] VITALS: BP 179/73; PULSE 60; TEMP 97.6
[2021-07-27] MEDS ORDERED: Acetaminophen 325 MG TABLET PO PRN (07:28)
[2021-07-27] MEDS: carvediloL 25 MG TABLET PO SCH ×2 (08:33→09:07)
[2021-07-27] MEDS: Aspirin Enteric Coated 81 MG Tablet PO SCH (08:33)
[2021-07-27] MEDS: amLODIPine 5 MG TABLET PO SCH ×2 (08:33→09:07)
[2021-07-27 08:47] VITALS: O2SAT 94
[2021-07-27] MEDS ORDERED: Isosorbide MONOnitrate (24 HR) 60 MG TAB.ER.24H PO SCH (09:00)
[2021-07-27] MEDS ORDERED: Carbidopa/Levodopa 25/100 TABLET PO SCH (09:00)
[2021-07-27] MEDS ORDERED: polyethylene glycoL 3350 17 GM POWD.PACK PO SCH (09:00)
[2021-07-27] MEDS ORDERED: hydrALAZINE 25 MG TABLET PO SCH (09:00)
[2021-07-27] MEDS ORDERED: lisinopriL 20 MG TABLET PO SCH (09:00)
[2021-07-27 10:10] LABS: Influenza A PCR Negative (Negative); Influenza B PCR Negative (Negative); Resp. Syncytial Virus PCR Negative (Negative)
[2021-07-27 10:44] LABS: SARS-CoV-2 by PCR (In House) Negative (Negative)
[2021-07-27] MEDS ORDERED: QUEtiapine Fumarate 25 MG TABLET PO SCH (21:00)
[2021-07-27] MEDS ORDERED: Melatonin 3 MG TABLET PO SCH (21:00)
[2021-07-27] MEDS ORDERED: traZODone 50 MG TABLET PO SCH (21:00)
[2021-07-27] MEDS ORDERED: Divalproex (24 HR) 500 MG TABLET PO SCH (21:00)
== END 2021-07-27 10:15 ==
LOC: EMEROOARM 23:53 → 3BNU 23:53 → SUATTDRO 07-26 02:44 → 3BNU 07-26 03:56
PROVIDERS: ADMIT Student in an Organized Health Care Education/Training Program; ATTEND Internal Medicine

== ENCOUNTER 2022-01-06 11:28 | Observation (INO) ==
[2022-01-06 12:50] LABS: Basophils % 0.5 %; Eosinophils # 0.3 K/mcL (0.0-0.6); Eosinophils % 3.3 %; Hematocrit 36.1 % (37.5-50.1); Hemoglobin 11.2 g/dL (12.9-16.9); Immature Granulocytes % 0.4 % (0-4); Lymphocytes # 0.8 K/mcL (0.6-4.6); Lymphocytes % 10.1 %; Mean Corpuscular Hemoglobin 29.1 pg (28.0-33.3); Mean Corpuscular Volume 93.8 fL (83.0-100.0); Mean Platelet Volume 9.5 fL (9.4-12.4); Monocytes % 12.4 %; Neutrophils # 5.6 K/mcL (1.6-8.9); Platelet Count 249 K/mcL (140-400); Red Blood Count 3.85 M/mcL (4.19-5.50); Red Cell Distribution Width 15.4 % (11.5-14.5); Segmented Neutrophils % 73.3 %; White Blood Count 7.6 K/mcL (4.3-11.1)
[2022-01-06 13:05] LABS: BUN/Creatinine Ratio 21 (6-26); Blood Urea Nitrogen 23 mg/dL (8-23); Calcium 9.1 mg/dL (8.6-10.3); Carbon Dioxide 34 mEq/L (23-29); Chloride 98 mEq/L (98-107); Glucose 101 mg/dL (70-105); Osmolality,Calculated 292 (280-300); Sodium 139 mEq/L (136-145); Troponin I < 0.03 ng/mL (< 0.04); eGFR For African Americans > 60 (> 60); eGFR For Non-African Americans > 60 (> 60)
[2022-01-06] MEDS ORDERED: Azithromycin 250 MG TABLET PO ONE (14:52)
[2022-01-06] MEDS ORDERED: Cefuroxime PO 250 MG TABLET PO ONE (14:52)
[2022-01-06] MEDS ORDERED: Ondansetron ODT 4 MG TAB.RAPDIS SL PRN (16:24)
[2022-01-06] MEDS ORDERED: Naloxone 0.4 MG/ML INJ IVP PRN (16:24)
[2022-01-06] MEDS ORDERED: Acetaminophen 325 MG TABLET PO PRN (16:24)
[2022-01-06] MEDS ORDERED: Ipratropium/Albuterol Neb 3 ML IH PRN (16:26)
[2022-01-06] MEDS ORDERED: Nitroglycerin 0.4 MG TAB.SUBL SL PRN (16:39)
[2022-01-06] MEDS: Furosemide 20 MG/2 ML VIAL IVP SCH (18:22)
[2022-01-06] MEDS: Carbidopa/Levodopa 25/100 TABLET PO SCH ×3 (18:22→23:00)
[2022-01-06] MEDS: carvediloL 25 MG TABLET PO SCH (18:22)
[2022-01-06] MEDS: traZODone 50 MG TABLET PO SCH ×2 (22:43→23:00)
[2022-01-06] MEDS: Divalproex (24 HR) 500 MG TABLET PO SCH ×2 (22:44→23:00)
[2022-01-06] MEDS: QUEtiapine Fumarate 25 MG TABLET PO SCH ×2 (22:44→23:00)
[2022-01-07 03:55] LABS: ABG Base Excess 9 mEq/L (-2 to 3); ABG HCO3 36 mEq/L (21-27); ABG Oxygen Saturation 85 % (95-98); ABG PCO2 57 mmHg (35-45); ABG PO2 52 mmHg (85-104); ABG TCO2 38 mEq/L (20-26)
[2022-01-07 04:04] LABS: ABG Base Excess 10 mEq/L (-2 to 3); ABG HCO3 38 mEq/L (21-27); ABG Oxygen Saturation 87 % (95-98); ABG PCO2 64 mmHg (35-45); ABG PH 7.38 pH Units (7.32-7.45); ABG PO2 56 mmHg (85-104); ABG TCO2 40 mEq/L (20-26)
[2022-01-07 07:55] VITALS: PULSE 69
[2022-01-07] MEDS: carvediloL 25 MG TABLET PO SCH (08:28)
[2022-01-07] MEDS: Carbidopa/Levodopa 25/100 TABLET PO SCH (08:28)
[2022-01-07] MEDS: Furosemide 20 MG/2 ML VIAL IVP SCH (08:28)
[2022-01-07 08:45] VITALS: O2SAT 92
[2022-01-07] MEDS ORDERED: amLODIPine 5 MG TABLET PO SCH (09:00)
[2022-01-07] MEDS ORDERED: Isosorbide MONOnitrate (24 HR) 60 MG TAB.ER.24H PO SCH (09:00)
[2022-01-07] MEDS ORDERED: Aspirin Enteric Coated 81 MG Tablet PO SCH (09:00)
[2022-01-07 10:56] VITALS: BP 155/64; TEMP 97.7
[2022-01-07 11:48] LABS: Influenza A PCR Negative (Negative); Influenza B PCR Negative (Negative); Resp. Syncytial Virus PCR Negative (Negative); SARS-CoV-2 by PCR (In House) Negative (Negative)
== END 2022-01-07 12:06 ==
LOC: EMEROOARM 11:28 → 3ANU 11:28 → SUATTDRO 16:14 → 3ANU 17:34
PROVIDERS: ADMIT Internal Medicine; ATTEND Internal Medicine